=== PATIENT | female | born 1940 | race Caucasian/White ===

== ENCOUNTER → 2021-01-03 | Outpatient (CLI) | payer MEDICARE ==
[~2021-01-03] MED LIST: TAMIFLU75 MG PO
== END ==
LOC: KOH-I 12:52
DX: I65.23 Occlusion and stenosis of bilateral carotid arteries (principal)
CPT/HCPCS: 93880

== ENCOUNTER → 2021-02-26 | Outpatient (CLI) | payer MEDICARE | LOC: KOH-I 14:58 | DX: M25.532 Pain in left wrist (principal); M21.832 Other specified acquired deformities of left forearm | CPT/HCPCS: 73110 ==

== ENCOUNTER → 2021-07-09 | Outpatient (CLI) | payer MEDICARE ==
[2021-07-10 09:14] LABS: HCV AB <0.1 (0.0-0.9)
[2021-07-10 11:14] LABS: RHEUMATOID ARTHRITIS FACTOR <10.0 IU/mL (0.0-13.9)
[2021-07-10 12:14] LABS: HBSAG SCREEN Negative (Negative); HEP B CORE AB, TOT Negative (Negative)
== END ==
LOC: LAB 09:19
PROVIDERS: Nurse Practitioner Family
DX: M79.641 Pain in right hand (principal); M79.642 Pain in left hand; Z11.59 Encounter for screening for other viral diseases; M25.50 Pain in unspecified joint; R76.8 Other specified abnormal immunological findings in serum; D89.9 Disorder involving the immune mechanism, unspecified; F41.9 Anxiety disorder, unspecified; M79.10 Myalgia, unspecified site; M19.041 Primary osteoarthritis, right hand; M21.932 Unspecified acquired deformity of left forearm; M21.931 Unspecified acquired deformity of right forearm; Z79.899 Other long term (current) drug therapy
CPT/HCPCS: 73130; 82550; 82728; 83520; 85652; 86140; 86200; 86431; 86704; 86803; 87340

== ENCOUNTER → 2022-06-19 | Outpatient (CLI) | payer MEDICARE | LOC: RAD 10:16 | DX: B97.21 SARS-associated coronavirus as the cause of diseases classified elsewhere (principal) | CPT/HCPCS: 71046 ==